=== PATIENT | male | born 1990 | race Caucasian/White ===

== ENCOUNTER 2022-03-23 16:26 | Emergency (ER) | payer SELFPAY ==
[~2022-03-23] VITALS: Ht 170.2 cm; Wt 75.0 kg
[2022-03-23] MEDS ORDERED: SODIUM CHLORIDE 0.9% 1,000 ML IV STA (18:16)
[2022-03-23 19:18] LABS: *AMPHETAMINES SCREEN URINE NEGATIVE (NEGATIVE); *BARBITURATES SCREEN URINE NEGATIVE (NEGATIVE); *BENZODIAZEPINES SCREEN URINE NEGATIVE (NEGATIVE); *COCAINE SCREEN URINE NEGATIVE (NEGATIVE); CANNABINOID URINE SCREEN PRESUMTIVE POSITIVE (NEGATIVE); METHADONE URINE SCREEN NEGATIVE (NEGATIVE); OPIATES URINE SCREEN NEGATIVE (NEGATIVE); PHENCYCLIDINE URINE SCREEN NEGATIVE (NEGATIVE)
[2022-03-23 20:36] VITALS: BP 135/74
== END 2022-03-23 20:36 | disposition home or self-care (01) ==
LOC: ER 16:26 → EDBD 16:26 → ER 20:36
DX: F12.129 Cannabis abuse with intoxication, unspecified (principal)
CPT/HCPCS: 80305; 93005; 99284; J7030